=== PATIENT | female | born 1985 | race Caucasian/White ===

== ENCOUNTER → 2020-05-16 | Outpatient (CLI) | payer OTHER | LOC: LAB 10:50 | PROVIDERS: ATTEND Internal Medicine Pulmonary Disease | DX: R05 Cough (principal); R06.02 Shortness of breath; R51 Headache; R09.89 Other specified symptoms and signs involving the circulatory and respiratory systems; J02.9 Acute pharyngitis, unspecified; Z20.828 Contact with and (suspected) exposure to other viral communicable diseases | CPT/HCPCS: U0003-CS ==

== ENCOUNTER → 2020-07-22 | Outpatient (CLI) | payer OTHER | LOC: LAB 13:26 | PROVIDERS: ATTEND Internal Medicine Pulmonary Disease | DX: R51.9 Headache, unspecified (principal); M79.10 Myalgia, unspecified site; Z20.828 Contact with and (suspected) exposure to other viral communicable diseases | CPT/HCPCS: U0003 ==